=== PATIENT | female | born 1990 | race Caucasian/White ===

== ENCOUNTER 2023-10-19 04:39 | Inpatient (IN) | payer OTHER ==
[~2023-10-19] VITALS: Ht 165.1 cm; Wt 81.6 kg
[2023-10-19 04:56] VITALS: BP_SYST 138; PULSE 104; RESP 16; TEMP 97.4; O2SAT 95
[2023-10-19] MEDS: ONDANSETRON HCL 4 MG/2 ML VIAL IVP ONE (05:24)
[2023-10-19] MEDS: FAMOTIDINE PF 20 MG/2 ML VIAL IVP ONE (05:25)
[2023-10-19] MEDS: MORPHINE 4 MG INJ. 4 MG/ML VIAL IVP ONE (05:27)
[2023-10-19] MEDS: NACL 0.9% 1,000 ML IV ONE ×2 (05:30→06:34)
[2023-10-19] MEDS: LORazepam 2 MG/ML VIAL IVP ONE (05:33)
[2023-10-19] MEDS: MAG-AL HYDROX/SIMETH 30 ML UDC PO ONE (05:33)
[2023-10-19 05:47] LABS: BASOPHILS % (AUTO) 0.2 % (0.0-2.0); EOSINOPHILS % (AUTO) 0.1 % (0.0-4.0); HEMATOCRIT 43.7 % (36-48); HEMOGLOBIN 14.5 g/dL (12.0-16.0); LYMPHOCYTES # (AUTO) 1.8 K/uL (1.0-5.5); LYMPHOCYTES % (AUTO) 8.3 % (20.5-51.5); MEAN CORPUSCULAR HEMOGLOBIN 28 pg (27-31); MEAN CORPUSCULAR HGB CONC 33 % (32-36); MEAN CORPUSCULAR VOLUME 84 fL (79.0-98.0); MONOCYTES # (AUTO) 1.5 K/uL (0.0-1.0); MONOCYTES % (AUTO) 6.9 % (1.7-9.3); NEUTROPHILS # (AUTO) 18.1 K/uL (1.8-7.7); NEUTROPHILS % (AUTO) 84.5 % (40.0-70.0); PLATELET COUNT (AUTO) 424 K/uL (130-430); RED BLOOD CELL COUNT(AUTO) 5.18 MIL/uL (4.2-6.2); RED CELL DISTRIBUTION WIDTH 14.3 % (9.0-15.0); WHITE BLOOD COUNT (AUTO) 21.4 K/uL (4.8-10.8)
[2023-10-19 06:03] LABS: CALCIUM 9.9 mg/dL (8.4-11.0); CREATININE 1.44 mg/dL (0.55-1.30); POTASSIUM 3.4 mmol/L (3.5-5.1)
[2023-10-19 06:08] LABS: ALBUMIN 4.1 g/dL (3.4-4.8); TOTAL BILIRUBIN 0.8 mg/dL (0.0-1.0)
[2023-10-19 07:05] LABS: SERUM HCG (QUALITATIVE) NEGATIVE (NEGATIVE)
[2023-10-19] MEDS ORDERED: ACET325T53 PO (07:44)
[2023-10-19 07:48] LABS: INR 1.1 (0.8-1.2); PROTHROMBIN TIME 11.4 SECS (9.5-12.5)
[2023-10-19] MEDS ORDERED: ACETAMINOPHEN 325 MG TABLET PO PRN ×3 (08:00→13:15)
[2023-10-19 08:06] LABS: BILIRUBIN,URINE 2+ (NEGATIVE); BLOOD, URINE NEGATIVE (NEGATIVE); CLARITY/URINE CLEAR (CLEAR); COLOR,URINE YELLOW (YELLOW); GLUCOSE,URINE NEGATIVE (NEGATIVE); KETONES,URINE 2+ (NEGATIVE); LEUKOCYTE ESTERASE ,URINE NEGATIVE (NEGATIVE); NITRITE, URINE NEGATIVE (NEGATIVE); PROTEIN URINE 1+ (NEGATIVE); UROBILINOGEN,URINE 0.2 (0.2-1.0)
[2023-10-19] MEDS: cefTRIAXone 1 GM VIAL IM ONE (08:23)
[2023-10-19] MEDS: NACL 0.9% 1,000 ML IV SCH ×2 (08:26→19:42)
[2023-10-19] MEDS: metroNIDAZOLE 500 mg/NS 100 ML IV ONE (08:26)
[2023-10-19 08:28] LABS: BARBITURATE, URINE NEGATIVE (NEG <=200); BENZODIAZEPINE, URINE POSITIVE (NEG <=150); CANNABINOID, URINE POSITIVE (NEG <=50); COCAINE, URINE POSITIVE (NEG <=150); METHAMPHETAMINES SCREEN,URINE NEGATIVE (NEG <=500); URINE AMPHETAMINE NEGATIVE (NEG <=500); URINE METHADONE NEGATIVE (NEG <=200)
[2023-10-19 08:29] LABS: OPIATE, URINE POSITIVE (NEG <=100); PHENCYCLIDINE SCREEN,URINE NEGATIVE (NEG <=25); UR TRICYCLIC ANTIDEPRESSANTS NEGATIVE (NEG <=300); URINE OXYCODONE SCREEN NEGATIVE (NEG <=100)
[2023-10-19] MEDS: KCL 20 mEq in 100 mL (PREMIX) 100 ML IV ONE (08:30)
[2023-10-19] MEDS: cefTRIAXone 1 GM in D5W 50 ML IV ONE (08:30)
[2023-10-19] MEDS: ONDANSETRON HCL 4 MG/2 ML VIAL IVP PRN (08:43)
[2023-10-19 09:03] LABS: BACTERIA,URINE RARE /HPF (None Seen); RBC,URINE 0-3 /HPF (0-3); WBC,URINE 0-3 /HPF (0-3)
[2023-10-19 09:04] LABS: HYALINE CASTS, URINE 0-1 /LPF (None Seen)
[2023-10-19] MEDS: MORPHINE 4 MG INJ. 4 MG/ML VIAL IVP PRN (09:08)
[2023-10-19] MEDS ORDERED: MIDAZOLAM HCL 2 MG/2 ML VIAL (VERSED) ONE (11:26)
[2023-10-19] MEDS ORDERED: fentaNYL CITRATE/PF 100 MCG/2 ML AMP ONE (11:26)
[2023-10-19] MEDS ORDERED: ACETAMINOPHEN I.V. 1000 MG 100 ML IV ONE (11:26)
[2023-10-19] MEDS ORDERED: NEOSTIGMINE METHYLSULFATE 1 MG/ML, 10 ML VIAL ONE (11:35)
[2023-10-19] MEDS ORDERED: NS 1000 ML IV.SOLN IV ONE (11:35)
[2023-10-19] MEDS ORDERED: PROPOFOL 200MG/ 20ML VIAL (DIPRIVAN) IV ONE (11:35)
[2023-10-19] MEDS ORDERED: SUCCINYLCHOLINE CHLORIDE 20 MG/ML(QUELICIN) ONE (11:35)
[2023-10-19] MEDS ORDERED: NS IRRIG SOLN 1000 ML IR ONE (11:35)
[2023-10-19] MEDS ORDERED: SEVOFLURANE 15 MIN GAS INH ONE (11:35)
[2023-10-19] MEDS ORDERED: GLYCOPYRROLATE 0.2 MG/ML VIAL ONE (11:35)
[2023-10-19] MEDS ORDERED: ISOFLURANE 15 MIN GAS INH ONE (11:35)
[2023-10-19] MEDS ORDERED: ROCURONIUM BROMIDE 10 MG/ML (ZEMURON) ONE (11:35)
[2023-10-19] MEDS ORDERED: DEXAMETHASONE SOD PHOSPHATE 4 MG/ML VIAL ONE (11:35)
[2023-10-19] MEDS ORDERED: ONDANSETRON HCL 4 MG/2 ML VIAL IVP PRN ×2 (12:15→13:15)
[2023-10-19] MEDS ORDERED: HYDROmorphone 1 MG/ML INJ. CARTRIDGE IVP PRN (12:15)
[2023-10-19] MEDS ORDERED: KETOROLAC TROMETHAMINE 30 MG VIAL IM PRN (12:15)
[2023-10-19] MEDS ORDERED: NALOXONE HCL 0.4 MG/ML AMP (NARCAN) IVP PRN ×2 (12:15→13:15)
[2023-10-19] MEDS ORDERED: KETOROLAC TROMETHAMINE 15 MG VIAL IVP PRN (13:15)
[2023-10-19] MEDS: HYDROmorphone 1 MG/ML INJ. CARTRIDGE IVP PRN (13:45)
[2023-10-19] MEDS ORDERED: hydrALAZINE HCL 20 MG/ML VIAL ONE (14:29)
[2023-10-19] MEDS: hydrALAZINE HCL 20 MG/ML VIAL IV PRN (14:32)
[2023-10-19] MEDS: MORPHINE 2 MG/ML INJ. SYRINGE IVP PRN (19:52)
[2023-10-19] MEDS: metroNIDAZOLE 500 mg/NS 100 ML IV SCH (20:00)
[2023-10-19] MEDS ORDERED: ZOLPIDEM TARTRATE 5 MG TABLET PO PRN (20:30)
[2023-10-19] MEDS: CEFAZOLIN 2 GM IVPB PREMIX 50 ML IV SCH (21:00)
[2023-10-19] MEDS: PIPERACILLIN/TAZO 3.375 GM in D5W 50 ML IV SCH (22:00)
[2023-10-20] VITALS (8 sets, daily range): BP systolic 108–136; PULSE 67–82; RESP 16–20; TEMP 97.3–98.2; O2SAT 97–99
[2023-10-20 06:38] LABS: BASOPHILS % (AUTO) 0.1 % (0.0-2.0); HEMOGLOBIN 12.2 g/dL (12.0-16.0); LYMPHOCYTES % (AUTO) 7.1 % (20.5-51.5); MEAN CORPUSCULAR HEMOGLOBIN 28 pg (27-31); MEAN CORPUSCULAR HGB CONC 33 % (32-36); MEAN CORPUSCULAR VOLUME 86 fL (79.0-98.0); MONOCYTES # (AUTO) 0.9 K/uL (0.0-1.0); MONOCYTES % (AUTO) 6.2 % (1.7-9.3); NEUTROPHILS # (AUTO) 12.7 K/uL (1.8-7.7); NEUTROPHILS % (AUTO) 86.6 % (40.0-70.0); PLATELET COUNT (AUTO) 302 K/uL (130-430); RED BLOOD CELL COUNT(AUTO) 4.31 MIL/uL (4.2-6.2); RED CELL DISTRIBUTION WIDTH 14.2 % (9.0-15.0)
[2023-10-20 07:20] LABS: ALBUMIN 2.8 g/dL (3.4-4.8); CALCIUM 8.1 mg/dL (8.4-11.0); CREATININE 0.79 mg/dL (0.55-1.30); POTASSIUM 3.5 mmol/L (3.5-5.1); TOTAL BILIRUBIN 0.6 mg/dL (0.0-1.0); TOTAL PROTEIN, SERUM 6.5 g/dL (6.4-8.3)
[2023-10-20 07:40] LABS: WHITE BLOOD COUNT (AUTO) 14.7 K/uL (4.8-10.8)
[2023-10-20] MEDS: PANTOPRAZOLE SODIUM 40 MG/VIAL (PROTONIX) IVP SCH (08:27)
[2023-10-20] MEDS: HYDROmorphone 1 MG/ML INJ. CARTRIDGE ONE (08:29)
[2023-10-20] MEDS: HYDROmorphone 1 MG/ML INJ. CARTRIDGE IVP PRN (11:58)
[2023-10-20] MEDS ORDERED: HYDROcodone/ACETAMIN 7.5-325 MG TAB PO PRN (13:00)
[2023-10-20] MEDS: DOCUSATE SODIUM 100 MG CAPSULE PO SCH (21:10)
[2023-10-21 01:37] VITALS: BP_SYST 106; PULSE 71; RESP 19; TEMP 97.6; O2SAT 99
[2023-10-21 02:00] VITALS: O2SAT 99
[2023-10-21 06:03] LABS: BASOPHILS % (AUTO) 0.3 % (0.0-2.0); EOSINOPHILS % (AUTO) 0.4 % (0.0-4.0); HEMATOCRIT 33.3 % (36-48); LYMPHOCYTES # (AUTO) 1.3 K/uL (1.0-5.5); LYMPHOCYTES % (AUTO) 14.1 % (20.5-51.5); MEAN CORPUSCULAR HEMOGLOBIN 28 pg (27-31); MEAN CORPUSCULAR HGB CONC 33 % (32-36); MEAN CORPUSCULAR VOLUME 86 fL (79.0-98.0); MONOCYTES # (AUTO) 0.9 K/uL (0.0-1.0); MONOCYTES % (AUTO) 9.8 % (1.7-9.3); NEUTROPHILS # (AUTO) 6.8 K/uL (1.8-7.7); NEUTROPHILS % (AUTO) 75.4 % (40.0-70.0); PLATELET COUNT (AUTO) 255 K/uL (130-430); RED BLOOD CELL COUNT(AUTO) 3.89 MIL/uL (4.2-6.2); RED CELL DISTRIBUTION WIDTH 14.2 % (9.0-15.0)
[2023-10-21 06:33] VITALS: BP_SYST 118; PULSE 71; RESP 19; TEMP 98.6
[2023-10-21 06:34] LABS: CREATININE 0.66 mg/dL (0.55-1.30); POTASSIUM 3.6 mmol/L (3.5-5.1)
[2023-10-21 09:45] VITALS: BP_SYST 124; PULSE 84; RESP 20; TEMP 98
[2023-10-21] MEDS: POLYETHYLENE GLYCOL 3350, 17 GM/ POWD.PACK PO ONE (11:36)
[2023-10-21 16:45] VITALS: BP_SYST 120; PULSE 70; RESP 18; TEMP 97.4
[2023-10-21 20:00] VITALS: BP_SYST 116; PULSE 89; RESP 18; TEMP 98; O2SAT 96
[2023-10-21] MEDS: PIPERACILLIN/TAZO 3.375 GM in D5W 50 ML IV SCH (22:31)
[2023-10-22] VITALS: BP_SYST 118; PULSE 75; RESP 18; TEMP 97.8; O2SAT 97
[2023-10-22 06:14] LABS: BASOPHILS % (AUTO) 0.2 % (0.0-2.0); EOSINOPHILS # (AUTO) 0.1 K/uL (0.0-0.4); EOSINOPHILS % (AUTO) 1.5 % (0.0-4.0); HEMATOCRIT 32.9 % (36-48); HEMOGLOBIN 10.8 g/dL (12.0-16.0); LYMPHOCYTES # (AUTO) 1.4 K/uL (1.0-5.5); LYMPHOCYTES % (AUTO) 19.2 % (20.5-51.5); MEAN CORPUSCULAR HEMOGLOBIN 28 pg (27-31); MEAN CORPUSCULAR HGB CONC 33 % (32-36); MEAN CORPUSCULAR VOLUME 86 fL (79.0-98.0); MONOCYTES # (AUTO) 0.7 K/uL (0.0-1.0); NEUTROPHILS # (AUTO) 5.2 K/uL (1.8-7.7); NEUTROPHILS % (AUTO) 70.1 % (40.0-70.0); PLATELET COUNT (AUTO) 266 K/uL (130-430); RED BLOOD CELL COUNT(AUTO) 3.83 MIL/uL (4.2-6.2); RED CELL DISTRIBUTION WIDTH 14.2 % (9.0-15.0); WHITE BLOOD COUNT (AUTO) 7.5 K/uL (4.8-10.8)
[2023-10-22 06:38] LABS: CREATININE 0.66 mg/dL (0.55-1.30); POTASSIUM 3.6 mmol/L (3.5-5.1)
[2023-10-22 08:00] VITALS: BP_SYST 120; PULSE 76; RESP 17; TEMP 98; O2SAT 98
[2023-10-22] MEDS: POLYETHYLENE GLYCOL 3350, 17 GM/ POWD.PACK PO SCH (09:00)
[2023-10-22] MEDS: HYDROcodone/ACETAMIN 10-325 MG TAB PO PRN (10:41)
[2023-10-22] MEDS: levoFLOXacin 750 MG TABLET PO SCH (10:43)
[2023-10-22 14:00] VITALS: BP_SYST 122; PULSE 78; RESP 18; TEMP 98; O2SAT 99
[2023-10-22] MEDS: metroNIDAZOLE 500 MG TABLET PO SCH (15:21)
[2023-10-22] MEDS ORDERED: DOCU-144 PO (17:29)
[2023-10-22] MEDS ORDERED: HYDR-3917 PO (17:29)
[2023-10-22] MEDS ORDERED: LEVO750T64 PO (17:29)
[2023-10-22] MEDS ORDERED: METR-154 PO (17:29)
[2023-10-22 18:19] VITALS: BP_SYST 126; PULSE 84; RESP 18; TEMP 98; O2SAT 98
== END 2023-10-22 18:20 | disposition home or self-care (01) | DRG 854 ==
LOC: SED 04:39 → SMU 07:55
PROVIDERS: ADMIT Internal Medicine; ATTEND Internal Medicine
PROC: 0DBH4ZZ Excision of Cecum, Percutaneous Endoscopic Approach (ICD-10-PCS; 2023-10-19)
PROC: 0DTJ4ZZ Resection of Appendix, Percutaneous Endoscopic Approach (ICD-10-PCS; principal; 2023-10-19 11:35)
DX: A41.9 Sepsis, unspecified organism (principal); K35.80 Unspecified acute appendicitis; N17.9 Acute kidney failure, unspecified; F14.10 Cocaine abuse, uncomplicated; Z88.8 Allergy status to other drugs, medicaments and biological substances
CPT/HCPCS: 36415; 80048; 80053; 80307; 81000; 81001; 81003; 81015; 83690; 84703; 85025; 85610; 85730; 86886; 86900; 86901; 87040; 87081; 88304; 99285; C1727; C9113; J0131; J0330; J0360; J0690; J0696; J1100; J1170; J2060; J2270; J2405; J2543; J2704; J2710; J3010; J3465; J3480; J3490; J7030; J7060